=== PATIENT | female | born 1985 | race Caucasian/White ===

== ENCOUNTER 2020-08-05 12:43 | Emergency (ER) | payer SELFPAY ==
[~2020-08-05] VITALS: Ht 157.5 cm; Wt 60.0 kg
[2020-08-05] MEDS ORDERED: fentaNYL/PF 50MCG/1 ML 2ML syringe IV ONE (13:10)
[2020-08-05] MEDS ORDERED: normal saline 1000ML IV soln IVB ONE (13:10)
[2020-08-05] MEDS ORDERED: ondansetron/PF 4mg/2ml inj IV ONE (13:10)
[2020-08-05 13:49] LABS: BASOPHILS % (AUTO) 0.1 % (0-1); EOSINOPHILS # (AUTO) 0.1 X10'3 (0-0.9); EOSINOPHILS % (AUTO) 0.8 % (0-6); HEMATOCRIT 47.2 % (35.0-45.0); HEMOGLOBIN 15.6 g/dl (12.0-16.0); LYMPHOCYTES # (AUTO) 1.4 X10'3 (1.1-4.8); LYMPHOCYTES % (AUTO) 8.1 % (21-51); MEAN CORPUSCULAR HEMOGLOBIN 32.6 PG (27.0-31.0); MEAN CORPUSCULAR VOLUME 98.7 FL (78-98); MEAN PLATELET VOLUME 8.2 FL (7.4-10.4); MONOCYTES # (AUTO) 0.8 X10'3 (0-0.9); MONOCYTES % (AUTO) 4.7 % (2-12); NEUTROPHILS # (AUTO) 14.5 X10'3 (1.8-7.7); NEUTROPHILS % (AUTO) 86.3 % (42-75); PLATELET COUNT 351 X10'3 (140-440); RED BLOOD COUNT 4.78 X10'6 (4.20-5.60); RED CELL DISTRIBUTION WIDTH 13.8 % (11.5-14.5); WHITE BLOOD COUNT 16.8 X10'3 (4.5-11.0)
[2020-08-05 14:05] LABS: HCG SERUM QL NEGATIVE
[2020-08-05 14:09] LABS: ALANINE AMINOTRANSFERASE 52 U/L (12-78); ALBUMIN 3.9 G/DL (3.4-5.0); ALBUMIN/GLOBULIN RATIO 1.1 (1.1-1.5); ALKALINE PHOSPHATASE 76 IU/L (46-116); ANION GAP 16 (8-16); ASPARTATE AMINO TRANSFERASE 31 U/L (10-37); BILIRUBIN,TOTAL 0.7 MG/DL (0.1-1.0); BLOOD UREA NITROGEN 10 MG/DL (7-18); BUN/CREATININE RATIO 13.2 (6.6-38.0); CALCIUM 9.2 MG/DL (8.5-10.1); CHLORIDE 103 MMOL/L (99-107); CREATININE 0.76 MG/DL (0.40-0.90); GLUCOSE 164 MG/DL (70-104); LIPASE 75 U/L (73-393); POTASSIUM 3.4 MMOL/L (3.5-5.1); SODIUM 141 MMOL/L (135-145); TOTAL CARBON DIOXIDE 22.5 MMOL/L (24-32); TOTAL PROTEIN 7.6 G/DL (6.4-8.2); eGFR 87 ML/MIN
[2020-08-05] MEDS ORDERED: ibuprofen tablet 400 MG TABLET PO ONE (14:25)
[2020-08-05] MEDS ORDERED: morphine 10mg/ml inj. IV ONE (15:10)
--- NOTE | 2020-08-05 16:15 | NUR ---
Note pamela in EDM - 08/05/20 at 1651 by PARIS PATIENT UP TO BATHROOM WITH STEADY GAIT FOR URINALYSIS SPEC. SIG OTHER HERE TO VISIT PATIENT. UA COLLECTED AND SENT TO THE LAB. PATIENT STATES SHE IS GOING OUTSIDE TO SMOKE A CIGARETTE WITH HER SIG OTHER. PATIENT INFORMED THAT SHE COULD NOT LEAVE THE ER WITH IV IN PLACE. PATIENT STATES "YOU CANNOT KEEP ME HERE AGAINST MY WILL.....I AM NOT IN [facility]." PATIENT PROCEEDED TO ATTEMPT TO LEAVE ER THROUGH THE AMBULANCE BAY DOOR AND WAS INSTRUCTED BY OTHER STAFF MEMBERS THAT PATIENT COULD NOT LEAVE ER WITH IV, SO SHE RETURNED TO HER ROOM AND HER SIG OTHER DEPARTED FROM ER THROUGH THE LOBBY.
--- NOTE | 2020-08-05 16:15 | NUR ---
PATIENT UP TO BATHROOM WITH STEADY GAIT FOR URINALYSIS SPEC. SIG OTHER HERE TO VISIT PATIENT. UA COLLECTED AND SENT TO THE LAB. PATIENT STATES SHE IS GOING OUTSIDE TO SMOKE A CIGARETTE WITH HER SIG OTHER. PATIENT INFORMED THAT SHE COULD NOT LEAVE THE ER WITH IV IN PLACE. PATIENT STATES "YOU CANNOT KEEP ME HERE AGAINST MY WILL.....I AM NOT IN [facility]." PATIENT PROCEEDED TO ATTEMPT TO LEAVE ER THROUGH THE AMBULANCE BAY DOOR AND WAS INSTRUCTED BY OTHER STAFF MEMBERS THAT PATIENT COULD NOT LEAVE ER WITH IV, SO SHE RETURNED TO HER ROOM AND HER SIG OTHER DEPARTED FROM ER THROUGH THE LOBBY.
[2020-08-05 16:39] LABS: CLARITY,URINE CLEAR (Clear); COLOR,URINE STRAW (Yellow); GLUCOSE, URINE NEGATIVE (Neg); KETONES,URINE 15 mg/dl (Neg); LEUKOCYTE ESTERASE ,URINE NEGATIVE (Neg); NITRITES, URINE NEGATIVE (Neg); OCCULT BLOOD,URINE SMALL (Neg); PH,URINE 5.5 (4.8-8.0); PROTEIN,URINE NEGATIVE (Neg); UROBILINOGEN,URINE 0.2 E.U/dL (0.2-1.0)
[2020-08-05 16:41] LABS: UA COLLECTION TYPE CLN CATCH MIDSTREAM
[2020-08-05 16:57] LABS: BACTERIA,URINE FEW /HPF (Neg); RBC,URINE 0-2 /HPF (0-2); SQUAMOUS EPITHELIAL CELL,UR FEW /LPF (FEW); WBC,URINE 0-4 /HPF (0-4)
[2020-08-05] MEDS ORDERED: morphine 4 MG/ML inj SYRINge IV ONE (18:20)
--- NOTE | 2020-08-05 18:52 | NUR ---
REPORT CALLED TO [facility], NURSE EVARISTO. PATIENT IS BEING ADMITTED TO ROOM 701 AND WILL BE GOING BY PRIVATE VEHICLE.
[2020-08-05 19:03] VITALS: BP 130/69
== END 2020-08-05 19:06 | disposition short-term general hospital (02) ==
LOC: ER 12:43
DX: N83.511 Torsion of right ovary and ovarian pedicle (principal); Z20.822 Contact with and (suspected) exposure to COVID-19; R10.84 Generalized abdominal pain; F17.200 Nicotine dependence, unspecified, uncomplicated; F12.90 Cannabis use, unspecified, uncomplicated
CPT/HCPCS: 36415; 74176; 76830; 76856; 80053; 81001; 83605; 83690; 84703; 85025; 87635; 93976; 96361; 96374; 96375; 96376; 99285; C9803; J2270; J2405; J3010; J7030

== ENCOUNTER 2021-06-04 05:17 | Inpatient (IN) | payer MEDICAID ==
[2021-06-01 13:47] LABS: BASOPHILS % (AUTO) 0.4 % (0-1); EOSINOPHILS # (AUTO) 0.2 X10'3 (0-0.9); EOSINOPHILS % (AUTO) 1.7 % (0-6); LYMPHOCYTES # (AUTO) 2.6 X10'3 (1.1-4.8); LYMPHOCYTES % (AUTO) 25.7 % (21-51); MEAN CORPUSCULAR HEMOGLOBIN 33.2 PG (27.0-31.0); MEAN CORPUSCULAR HGB CONC 34.4 g/dL (33.0-36.5); MEAN CORPUSCULAR VOLUME 96.6 FL (78-98); MEAN PLATELET VOLUME 7.9 FL (7.4-10.4); MONOCYTES # (AUTO) 0.8 X10'3 (0-0.9); MONOCYTES % (AUTO) 7.7 % (2-12); NEUTROPHILS # (AUTO) 6.4 X10'3 (1.8-7.7); NEUTROPHILS % (AUTO) 64.5 % (42-75); PRE OP HEMATOCRIT 43.1 % (35.0-45.0); PRE OP HEMOGLOBIN 14.8 g/dL (12.0-16.0); PRE OP PLATELET COUNT 348 X10'3 (140-440); RED BLOOD COUNT 4.47 X10'6 (4.20-5.60); RED CELL DISTRIBUTION WIDTH 13.4 % (11.5-14.5)
[2021-06-01 13:59] LABS: ALBUMIN 3.7 G/DL (3.4-5.0); ALBUMIN/GLOBULIN RATIO 1.1 (1.1-1.5); ALKALINE PHOSPHATASE 64 IU/L (46-116); BLOOD UREA NITROGEN 15 MG/DL (7-18); BUN/CREATININE RATIO 19.7 (6.6-38.0); CALCIUM 8.8 MG/DL (8.5-10.1); CHLORIDE 104 MMOL/L (99-107); CREATININE 0.76 MG/DL (0.40-0.90); PRE OP ALT 25 U/L (30-65); PRE OP ANION GAP 6 (8-16); PRE OP AST 18 U/L (10-37); PRE OP BILIRUB, TOTAL 0.3 MG/DL (0.0-1.0); PRE OP GLUCOSE 97 MG/DL (70-104); PRE OP POTASSIUM 3.8 MMOL/L (3.4-5.1); PRE OP SODIUM 138 MMOL/L (135-145); TOTAL CARBON DIOXIDE 27.7 MMOL/L (24-32); TOTAL PROTEIN 7.1 G/DL (6.4-8.2); eGFR 86 ML/MIN
[2021-06-01 14:05] LABS: HCG SERUM QL NEGATIVE
[~2021-06-04] VITALS: Ht 160 cm; Wt 64.6 kg
[2021-06-04] VITALS (20 sets, daily range): BP systolic 106–136; BP diastolic 50–79
[~2021-06-04 05:17] MED LIST: NO HOME MEDS; ringers solution, lacted 1,000 ML IV SCH
[2021-06-04] MEDS ORDERED: ceFOXitin 2GM-NS 100mL ADDvant 100 ML IV ONE (05:30)
[2021-06-04] MEDS ORDERED: famotidine 20mg tablet PO ONE (05:30)
[2021-06-04] MEDS ORDERED: LIDOcaine 1% (10mg/ml) 2ml vial ONE (05:37)
[2021-06-04] MEDS ORDERED: BUPIVAcaine 0.5% inj/PF 30 ML ONE (06:44)
[2021-06-04] MEDS ORDERED: ROPIVAcaine 0.5% (5mg/ml) 30ml vial ONE (06:53)
[2021-06-04] MEDS ORDERED: methylene blue (5mg/ml) 50mg/10ml ampul IV ONE (06:54)
[2021-06-04] MEDS ORDERED: ondansetron/PF 4mg/2ml inj IV PRN ×2 (07:05→10:40)
[2021-06-04] MEDS ORDERED: labetalol 20mg/4ml (5mg/ml) syringe IV PRN (07:05)
[2021-06-04] MEDS ORDERED: morphine 2 MG/ML inj. syringe IV PRN (07:05)
[2021-06-04] MEDS ORDERED: ringers solution, lacted 1,000 ML IV SCH (07:05)
[2021-06-04] MEDS ORDERED: morphine 4 MG/ML inj SYRINge IV PRN (07:05)
[2021-06-04] MEDS ORDERED: fentaNYL/PF 50MCG/1 ML 2ML syringe IV PRN (07:05)
[2021-06-04] MEDS ORDERED: hydrALAZINE 20mg/ml inj. IV PRN (07:05)
[2021-06-04] MEDS ORDERED: midazolam 1 mg/ML 2ml injection ONE (07:13)
[2021-06-04] MEDS ORDERED: fentaNYL /PF 50mcg/ml 5ml ampule ONE (07:15)
[2021-06-04] MEDS ORDERED: propofol inj 20 ML IV ONE (07:16)
[2021-06-04] MEDS ORDERED: LIDOcaine 2% (20mg/ml) 5ml vial ONE (07:16)
[2021-06-04] MEDS ORDERED: neostigmine methylsulfate 1 MG/ML 10ml vial ONE (07:17)
[2021-06-04] MEDS ORDERED: glycopyrrolate 0.2mg/ml inj ONE (07:17)
[2021-06-04] MEDS ORDERED: rocuronium 10mg/ml inj IV ONE ×2 (07:17→09:17)
[2021-06-04] MEDS ORDERED: ondansetron/PF 4mg/2ml inj ONE (07:17)
[2021-06-04] MEDS ORDERED: dexamethasone sod phosphate 4mg/ml inj. ONE (07:17)
[2021-06-04] MEDS ORDERED: sevoflurane 250ml liquid IH ONE (07:40)
[2021-06-04] MEDS ORDERED: labetalol 20mg/4ml (5mg/ml) syringe IV ONE (08:32)
[2021-06-04] MEDS ORDERED: vasoPRESSIN 20 units/ml inj. ONE (08:38)
[2021-06-04] MEDS ORDERED: morphine 10mg/ml inj. ONE (09:59)
[2021-06-04] MEDS ORDERED: CADD PCA waste documentation MC PRN (10:40)
[2021-06-04] MEDS ORDERED: diphenhydrAMINE 50 mg/ml inj IV PRN (10:40)
[2021-06-04] MEDS ORDERED: naloxone 0.4 mg/ml inj IV PRN (10:40)
[2021-06-04] MEDS ORDERED: magnesium hydroxide 30ml (MOM) UD suspension PO PRN (10:40)
[2021-06-04] MEDS ORDERED: oxyCODONE/APAP 5-325mg tablet PO PRN ×2 (10:40)
[2021-06-04] MEDS ORDERED: mag hydrox/Alum hydrox/simeth 30ml oral suspension PO PRN (10:40)
[2021-06-04] MEDS ORDERED: normal saline 500ML IV soln IV PRN (10:40)
--- NOTE | 2021-06-04 10:45 | NUR ---
Received from OR via SURGICAL BED , accompanied by Anesthesiologist SHARON and report given by Anesthesiolgist. PATIENT WITH 20G PIV IN LEFT UE RUNNING LR AT 100. MEDICATED FOR PAIN UPON ARRIVAL FOR 8-10 PAIN ABDOMEN. LOW ABDOMINAL ISLAND DRESSING IN PLACE WITH NO DRAINAGE PRESENT. SCDS DONNED . 02 ON AT 10L MASK WITH 98% SATURATIONS. Addendum: 06/04/21 at 1102 by Marco Martin RN, RN Amended: Links added.
[2021-06-04] MEDS: fentaNYL/PF 50MCG/1 ML 2ML syringe IV PRN ×2 (10:52→11:25)
[2021-06-04] MEDS: HYDROmorph./NS 0.2 mg/ml CADD 100 ML IV SCH ×8 (12:04→23:00)
--- NOTE | 2021-06-04 12:15 | NUR ---
PATIENT HAS MET ALL CRITERIA FOR TRANSFER TO THE SURGICAL FLOOR. VSS. DRESSINGS INTACT. BED LOW, CALL LIGHT PRESENT AND 2 RAILS UP. RN PRESENT TO ACCEPT CARE OF PATIENT AND REPORT HAS BEEN CALLED. ALL QUESTIONS ANSWERED TO ACCEPTING RN LINDA. SMALL AMOUNT OF BLOOD TO LEFT SIDE OF ISLAND DRESSING. VSS. CADD BOLUS ADMINISTERED AT BEDSIDE AND RN LINDA WILL CONTINUE TO ASSESS AND TREAT PAIN NEEDED. Addendum: 06/04/21 at 1230 by Marco Hannah - VANESA RN Amended: Links added.
--- NOTE | 2021-06-04 12:39 | NUR ---
Pt arrived from Recovery with belongings, CADD Pump and IV fluid settings accurate, Post op VS started Call light in reach, pt resting comfortably. Report received from
[2021-06-04] MEDS: ringers solution, lacted 1,000 ML IV SCH ×2 (13:00→16:00)
--- NOTE | 2021-06-04 15:14 | NUR ---
patient states last bowel movement was 06/03/2021 am. Have not witnessed bowel movement
[2021-06-04] MEDS: simethicone 80mg chew tab PO SCH ×2 (15:57→17:58)
--- NOTE | 2021-06-04 16:14 | NUR ---
Chart ing by Nadine JOHNSTON by Elvis Damon RN
--- NOTE | 2021-06-04 18:28 | NUR ---
Problems reprioritized. Patient report given, questions answered & plan of care reviewed with Elva.
[2021-06-04] MEDS: docusate sod 100mg capsule PO SCH (20:50)
[2021-06-05] VITALS: BP 108/60
[2021-06-05] MEDS: ringers solution, lacted 1,000 ML IV SCH (00:03)
[2021-06-05] MEDS: HYDROmorph./NS 0.2 mg/ml CADD 100 ML IV SCH ×2 (03:00→05:00)
--- NOTE | 2021-06-05 03:40 | NUR ---
Witnessed dilaudid bolus dose o.2mg on B[facility] [place]ER CADD by Sandra Price RN
[2021-06-05 06:36] LABS: BASOPHILS % (AUTO) 0.1 % (0-1); EOSINOPHILS # (AUTO) 0.1 X10'3 (0-0.9); EOSINOPHILS % (AUTO) 0.6 % (0-6); HEMATOCRIT 34.2 % (35.0-45.0); HEMOGLOBIN 11.6 g/dl (12.0-16.0); LYMPHOCYTES # (AUTO) 2.5 X10'3 (1.1-4.8); LYMPHOCYTES % (AUTO) 17.1 % (21-51); MEAN CORPUSCULAR HEMOGLOBIN 32.7 PG (27.0-31.0); MEAN CORPUSCULAR HGB CONC 33.9 g/dL (33.0-36.5); MEAN CORPUSCULAR VOLUME 96.7 FL (78-98); MONOCYTES # (AUTO) 1.4 X10'3 (0-0.9); MONOCYTES % (AUTO) 9.3 % (2-12); NEUTROPHILS # (AUTO) 10.7 X10'3 (1.8-7.7); NEUTROPHILS % (AUTO) 72.9 % (42-75); PLATELET COUNT 265 X10'3 (140-440); RED BLOOD COUNT 3.54 X10'6 (4.20-5.60); RED CELL DISTRIBUTION WIDTH 13.3 % (11.5-14.5); WHITE BLOOD COUNT 14.6 X10'3 (4.5-11.0)
--- NOTE | 2021-06-05 07:01 | NUR ---
Patient in room [facility] 350. I have received report from [facility] and had the opportunity to ask questions and assume patient care.
[2021-06-05] MEDS: simethicone 80mg chew tab PO SCH ×2 (07:42→13:49)
[2021-06-05] MEDS: docusate sod 100mg capsule PO SCH (07:42)
[2021-06-05] MEDS: ketorolac trometh. 30mg/ml inj. IV PRN ×2 (07:49→14:50)
[2021-06-05 08:00] VITALS: BP 109/62
--- NOTE | 2021-06-05 14:54 | NUR ---
patient discharged via wheelchair. PIV removed and intact.
== END 2021-06-05 14:56 | disposition home or self-care (01) | DRG 513 ==
LOC: PAS IN 05:17 → SUR 3N 12:15
PROVIDERS: ADMIT Obstetrics & Gynecology; ATTEND Obstetrics & Gynecology
PROC: 0UB00ZZ Excision of Right Ovary, Open Approach (ICD-10-PCS; 2021-06-04)
PROC: 3E0P3GC Introduction of Other Therapeutic Substance into Female Reproductive, Percutaneous Approach (ICD-10-PCS; 2021-06-04)
PROC: 0UB90ZZ Excision of Uterus, Open Approach (ICD-10-PCS; principal; 2021-06-04 07:40)
DX: N80.1 Endometriosis of ovary (principal); D25.1 Intramural leiomyoma of uterus; R10.2 Pelvic and perineal pain
CPT/HCPCS: 36415; 80053; 82948; 84703; 85025; 86885; 86900; 86901; 87081; 87635; A4355; A4618; A6250; A7000; C1758; G0378; J0694; J1100; J1170; J1885; J2250; J2274; J2405; J2704; J2710; J2795; J3010; J3490; J7030; J7120; Q9968; S0020

== ENCOUNTER 2022-09-09 09:15 | Emergency (ER) | payer MEDICAID ==
[~2022-09-09] VITALS: Ht 160 cm; Wt 59.2 kg
[2022-09-09 09:26] VITALS: BP 124/59
[2022-09-09] MEDS ORDERED: carbamide peroxide 15ml bottle RIGHT EAR ONE (10:25)
== END 2022-09-09 12:31 | disposition home or self-care (01) ==
LOC: ER 09:16
DX: H61.21 Impacted cerumen, right ear (principal); F12.90 Cannabis use, unspecified, uncomplicated
CPT/HCPCS: 99282

== ENCOUNTER 2023-04-19 04:52 | Emergency (ER) | payer MEDICAID ==
[~2023-04-19] VITALS: Ht 160 cm; Wt 63.6 kg
[2023-04-19 04:54] VITALS: BP 129/100; PULSE 85; RESP 16; TEMP 98.1; O2SAT 98
[2023-04-19] MEDS ORDERED: bacitracin 15gm ointment TP ONE (05:25)
[2023-04-19] MEDS ORDERED: HYDR-3965 PO (05:26)
== END 2023-04-19 06:10 | disposition home or self-care (01) ==
LOC: ER 04:52
DX: S61.012A Laceration without foreign body of left thumb without damage to nail, initial encounter (principal); W23.0XXA Caught, crushed, jammed, or pinched between moving objects, initial encounter; Y93.89 Activity, other specified; Y92.89 Other specified places as the place of occurrence of the external cause; Y99.8 Other external cause status
CPT/HCPCS: 12002; 73140; 99283; A6449

== ENCOUNTER 2024-01-30 08:44 | Emergency (ER) | payer MEDICAID ==
[~2024-01-30] VITALS: Ht 160 cm; Wt 65.9 kg
[2024-01-30 08:51] VITALS: BP 137/89; PULSE 86; RESP 18; TEMP 98; O2SAT 100
[2024-01-30 09:44] LABS: BASOPHILS % (AUTO) 0.4 % (0-1); EOSINOPHILS # (AUTO) 0.2 X10'3 (0-0.9); EOSINOPHILS % (AUTO) 2.7 % (0-6); HEMOGLOBIN 15.8 g/dl (12.0-16.0); LYMPHOCYTES # (AUTO) 2.1 X10'3 (1.1-4.8); LYMPHOCYTES % (AUTO) 23.4 % (21-51); MEAN CORPUSCULAR HEMOGLOBIN 32.9 PG (27.0-31.0); MEAN CORPUSCULAR HGB CONC 33.5 g/dL (33.0-36.5); MEAN CORPUSCULAR VOLUME 98.3 FL (78-98); MEAN PLATELET VOLUME 8.1 FL (7.4-10.4); MONOCYTES # (AUTO) 0.6 X10'3 (0-0.9); MONOCYTES % (AUTO) 6.8 % (2-12); NEUTROPHILS # (AUTO) 6.1 X10'3 (1.8-7.7); NEUTROPHILS % (AUTO) 66.7 % (42-75); PLATELET COUNT 303 X10'3 (140-440); RED BLOOD COUNT 4.79 X10'6 (4.20-5.60); RED CELL DISTRIBUTION WIDTH 13.9 % (11.5-14.5); WHITE BLOOD COUNT 9.1 X10'3 (4.5-11.0)
[2024-01-30 10:03] LABS: ALBUMIN 3.7 G/DL (3.4-5.0); ANION GAP 8 (8-16); BLOOD UREA NITROGEN 11 MG/DL (7-18); BUN/CREATININE RATIO 15.5 (10.0-20.0); CALCIUM 9.6 MG/DL (8.5-10.1); CHLORIDE 106 MMOL/L (99-107); CREATININE 0.71 MG/DL (0.40-0.90); FREE T4 (FREE THYROXINE) 0.91 NG/DL (0.73-1.40); GLUCOSE 103 MG/DL (70-104); LIPASE 27 U/L (16-77); POTASSIUM 4.2 MMOL/L (3.5-5.1); SODIUM 142 MMOL/L (135-145); THYROID STIMULATING HORMONE 0.77 ulU/ml (0.34-4.50); TOTAL CARBON DIOXIDE 28.3 MMOL/L (24-32); eCRCL 88 ML/MIN; eGFR > 90 ML/MIN
[2024-01-30 11:26] LABS: URINE HCG NEGATIVE (NEG)
[2024-01-30 11:28] LABS: BILIRUBIN,URINE NEGATIVE (Neg); CLARITY,URINE CLEAR (Clear); COLOR,URINE YELLOW (Yellow); GLUCOSE, URINE NEGATIVE (Neg); KETONES,URINE NEGATIVE (Neg); LEUKOCYTE ESTERASE ,URINE NEGATIVE (Neg); NITRITES, URINE NEGATIVE (Neg); OCCULT BLOOD,URINE TRACE-INTACT (Neg); PROTEIN,URINE NEGATIVE (Neg); UROBILINOGEN,URINE 0.2 E.U/dL (0.2-1.0)
[2024-01-30 11:33] LABS: SQUAMOUS EPITHELIAL CELL,UR FEW /LPF (FEW); UA COLLECTION TYPE CLN CATCH MIDSTREAM
[2024-01-30 11:34] LABS: BACTERIA,URINE NONE SEEN /HPF (Neg); WBC,URINE 0-4 /HPF (0-4)
== END 2024-01-30 12:44 | disposition home or self-care (01) ==
LOC: ER 08:45
DX: E04.1 Nontoxic single thyroid nodule (principal); F12.90 Cannabis use, unspecified, uncomplicated
CPT/HCPCS: 36415; 76536; 80048; 81001; 81025; 83690; 84439; 84443; 84480; 85025; 99284

== ENCOUNTER 2024-09-25 05:59 | Emergency (ER) | payer MEDICAID ==
[~2024-09-25] VITALS: Ht 160 cm; Wt 71.2 kg
[2024-09-25 06:00] VITALS: BP 133/77; PULSE 75; RESP 14; TEMP 97.5; O2SAT 100
[2024-09-25] MEDS ORDERED: LIDO28CR2 TOP (06:26)
--- NOTE | 2024-09-25 06:28 | Physician Documentation ---
History of Present Illness ~ General Chief Complaint: See Chief Complaint Stated Complaint: SEE CHIEF Time Seen by MD: 06:21 Primary Medical Doctor: ARNOLD MALIK @ [facility] History of Present Illness Initial Comments This is a very pleasant 38-year-old female with a known family history of colon cancer in both of her brothers, presents for evaluation of pain with defecation and bright red blood per rectum on the toilet tissue or on the stool, not mixed with stool, for the last two months. No obvious trigger provocation. She is experiencing pain before the bowel movements and during the bowel movements. The pain is severe. No particular palliating factors, no aggravating factors, she had attempted to change her diet and eat healthy. It hurts every single time she is experiencing bowel movement. She denies any other complaints. She quit smoking nine months ago. Medication Reconciliation Allergies: Coded Allergies: No Known Allergies (Unverified , 01/30/24) Scheduled PRN Lidocaine/Phenyl/Glycer/Petrol (Preparation H Rapid-Lido Cream), 1 APPLIC TOP BID PRN for pain Past Medical History Past Medical History: No Pertinent History Past Surgical History: noncontributory Alcohol Use: None Drug Use: marijuana Lives with: Spouse Lives In: Home Review of Systems ROS 10 point review of systems was performed and unless noted above in HPI is negative for acute process/complaint. Physical Exam Physical Exam Vital Signs: Temperature: 97.5, Source: Temporal, Heart Rate: 75, Respiratory Rate: 14, BP: 133/77, Pulse Oximetry: 100, Weight: 71.200 Physical Exam Physical examination: GENERAL: Awake, alert, oriented, GCS 15, no apparent distress, non-toxic appearing, answers questions, follows commands appropriately. HEENT: Atraumatic, normocephalic, pupils equal, extraocular muscles intact Active gross movements, sclerae anicteric, mucus membranes moist, no stridor. NECK: Midline, no JVD CARDIOVASCULAR: Good skin perfusion without evidence of pallor, mottling. PULMONARY: Nonlabored, symmetric chest rise, no audible wheezing, no accessory muscle use, no respiratory distress, speaking in full sentences. GASTROINTESTINAL: Not distended. NEUROLOGIC: Lucid with normal mental status. Normal facial symmetry. Moves all extremities symmetrically and with purpose. No truncal ataxia. Speech is fluid without evidence of dysarthria or aphasia, no focal deficits appreciated. EXTREMITIES: Acute deformities Skin: warm, dry PSYCHIATRIC: Normal affect, normal insight, normal concentration. Focused exam: [] Rectal exam was deferred due to lack of privacy in triage Progress Results/Orders Results/Orders Vital Signs 09/25/24 06:00 Temp 97.5 Pulse 75 Resp 14 B/P (MAP) 133/77 Pulse Ox 100 Medical Decision Making Findings Facility Status: ED Holds, [facility] process The plan was discussed with the patient, who demonstrates clear understanding of the plan and is in agreement with the plan unless otherwise noted in the chart. All questions have been answered, all concerns were addressed unless otherwise documented. I was available throughout their ED stay for frequent reassessment and questions. Differential Diagnoses (considered and possible or likely): [External hemorrhoid, internal hemorrhoid, anal fissure, significantly less likely rectal cancer with colon cancer] ??Differential Diagnoses (considered and unlikely, not requiring evaluation currently): [See above] MDM Data Please see [facility] for the following: Independent Historians and external Records Review. Historian: [Patient] Independent Historians: ?[None] Medication Management: [Reviewed medication list] Social History and determinants: [Reviewed] Please see the body of the note for the following: Any independent interpretations of ECG, imaging studies. All vitals signs/haemodynamics, ordered tests were independently reviewed and interpreted by myself. Nursing triage complaint and vitals reviewed, additional nursing notes were reviewed as available and I agree unless otherwise noted or documented in con tradiction in the chart Vital Signs: Independently reviewed Labs: Independently interpreted Imaging: Independently interpreted Old Medical Records: Independently reviewed, see HPI for relevant summary and information Pulse Oximetry: [96%] interpreted as [normal on room air] by me Additionally notably showing: [Hemodynamically stable] Tests considered but not ordered include: [Hematologic workup and imaging has been considered but does not appear to be necessary given clinical nature of diagnosis] Social Determinants of Health Impact: Patient was evaluated in [facility], [facility] [place] to healthcare due to below par ratio of patient to medical providers. [] Comorbid Conditions Impacting Present Evaluation and Care/Treatment: [Family history of colon cancer] Management Discussions with other Healthcare Providers: [None] Treatment and Disposition Medication Management (Given or considered): []. See EMR for details Consideration for Hospitalization/Escalation/Deescalation of Care: Admission for observation has been considered, [however the patient is able to tolerate p.o., their symptoms are controlled, they are able to rely on oral medications, and their chief complaint/diagnosis can be managed on outpatient basis.] ?ED Course:?[Patient already has an appointment with the gastroenterology. Discussed the fact that imaging would not residents desired results unless the cancer as far gone and most likely this is not a cancer like presentation but rather presentation of anal fissure. Discussed diet modification.] ?Shared decision making:?[Patient is hemodynamically stable for discharge home with follow with their primary care provider. [ ] Specific and cautious return precautions provided and discussed with full understanding. Any incidental findings were also discussed and follow up recommendations given. [] All questions answered. Patient/family were able to verbalize back return precautions. Patient/family agree to plan. Copies of imaging and laboratory studies were provided.] Code status:?FULL Please see the full Electronic Medical Record for full details of nursing documentation, medications list, other records of complete past medical history and conditions, vital signs, laboratory studies, and any radiologic study interpretations by radiologists. Portions of this note were completed using [employer] dictation software and as a result there may exist minor errors in spelling. I have reviewed elements of past family and social history and agree as included in note. Departure Disposition: 01 HOME / SELF CARE / HOMELESS Impression: Primary Impression: Painful defecation Additional Impressions: Bright red blood per rectum Anal tear Condition: Stable Discharge Instructions: Anal Fissure, Adult Additional Instructions: Please follow-up with the DR. Beltran, it graphic production artist, for colonoscopy or consider contacting general surgeons in [place] or [facility] for colonoscopy. Referrals: NO PRIMARY CARE PROVIDER (PCP) Prescriptions Lidocaine/Phenyl/Glycer/Petrol (Preparation H Rapid-Lido Cream) 5 %-0.25 %-14.4 %-15 % Cream..g. 1 APPLIC TOP BID PRN for pain for 10 Days, #100 GM Prov: HUSAM MYERS DO 09/25/24 Education Educated: Patient Educated regarding: diagnosis, treatment, prognosis, need for follow up Signature Scribe Signature: No scribe Attestation: This note accurately reflects clinical decisions, work performed by myself, Husam Myers, HUSAM GALVAN DO September 25, 2024 06:28
== END 2024-09-25 06:51 | disposition home or self-care (01) ==
LOC: ER 05:59
DX: S31.831A Laceration without foreign body of anus, initial encounter (principal); K62.5 Hemorrhage of anus and rectum; F12.90 Cannabis use, unspecified, uncomplicated; Z79.899 Other long term (current) drug therapy; X58.XXXA Exposure to other specified factors, initial encounter; Y93.89 Activity, other specified; Y92.89 Other specified places as the place of occurrence of the external cause; Y99.8 Other external cause status
CPT/HCPCS: 99282; 99283